=== PATIENT | female | born 1995 | race African-American/Black ===

== ENCOUNTER 2017-09-03 17:26 | Emergency (ER) | payer OTHER ==
[~2017-09-03] VITALS: Ht 149.9 cm; Wt 40.8 kg
[2017-09-03 17:35] VITALS: BP 112/66
[2017-09-03 18:28] LABS: BILIRUBIN,URINE NEGATIVE (NEG); GLUCOSE,URINE NEGATIVE (NEG); NITRITE,URINE NEGATIVE (NEG); PH,URINE 7.5; PROTEIN,URINE NEGATIVE (NEG-TRACE)
[2017-09-03 18:40] LABS: BACTERIA,URINE 0 /HPF (0-FEW); SQUAMOUS EPITHELIAL CELL,UR MOD /LPF; WBC,URINE 20-40 /HPF (0-4)
[2017-09-03 18:41] LABS: TRICHOMONAS,URINE PRESENT
[2017-09-03] MEDS ORDERED: SULF1TAB24 PO (18:59)
--- NOTE | 2017-09-03 18:59 | PHYS DOC ---
Past Medical History Past Medical History: No Pertinent History Past Surgical History: No Surgical History Alcohol Use: None Drug Use: None Adult General Chief Complaint Chief Complaint: PAIN ON URINATION HPI HPI Patient is a 22 year old female who presents with dysuria for 2 days. Patient denies any fever nausea vomiting. Review of Systems Review of Systems Constitutional: Denies fever or chills [] Eyes: Denies change in visual acuity, redness, or eye pain [] HENT: Denies nasal congestion or sore throat [] Respiratory: Denies cough or shortness of breath [] Cardiovascular: No additional information not addressed in HPI [] GI: Denies abdominal pain, nausea, vomiting, bloody stools or diarrhea [] : Dysuria for 2 days. Musculoskeletal: Denies back pain or joint pain [] Integument: Denies rash or skin lesions [] Neurologic: Denies headache, focal weakness or sensory changes [] All other systems were reviewed and found to be within normal limits, except as documented in this note. Current Medications Current Medications Current Medications Medications (Trade) Dose Ordered Sig/Nory Start Time Stop Time Status Last Admin Dose Admin Azithromycin (Zithromax) 1,000 mg 1X ONCE 09/03/17 19:00 09/03/17 19:01 UNV Ceftriaxone Sodium (Rocephin Im) 250 mg 1X ONCE 09/03/17 19:00 09/03/17 19:01 UNV Metronidazole (Flagyl) 2,000 mg 1X ONCE 09/03/17 19:00 09/03/17 19:01 UNV Physical Exam Physical Exam Constitutional: Well developed, well nourished, no acute distress, non-toxic appearance. [] HENT: Normocephalic, atraumatic, bilateral external ears normal, oropharynx moist, no oral exudates, nose normal. [] Eyes: PERRLA, EOMI, conjunctiva normal, no discharge. [] Neck: Normal range of motion, no tenderness, supple, no stridor. [] Cardiovascular:Heart rate regular rhythm, no murmur [] Lungs & Thorax: Bilateral breath sounds clear to auscultation [] Abdomen: Bowel sounds normal, soft, no tenderness, no masses, no pulsatile masses. [] Skin: Warm, dry, no erythema, no rash. [] Back: No tenderness, no CVA tenderness. [] Extremities: No tenderness, no cyanosis, no clubbing, ROM intact, no edema. [] Neurologic: Alert and oriented X 3, normal motor function, normal sensory function, no focal deficits noted. [] Psychologic: Affect normal, judgement normal, mood normal. [] Current Patient Data Vital Signs Vital Signs Date Time Temp Pulse Resp B/P (MAP) Pulse Ox O2 Delivery O2 Flow Rate FiO2 09/03/17 17:35 97.8 96 14 100 Room Air 97.8 Lab Values Laboratory Tests Test 09/03/17 17:43 09/03/17 18:20 POC Urine HCG, Qualitative Hcg negative (Negative) Urine Collection Type Unknown Urine Color Yellow Urine Clarity Clear Urine pH 7.5 Urine Specific [place] 1.020 Urine Protein Negative mg/dL (NEG-TRACE) Urine Glucose (UA) Negative mg/dL (NEG) Urine Ketones (Stick) Negative mg/dL (NEG) Urine Blood Negative (NEG) Urine Nitrite Negative (NEG) Urine Bilirubin Negative (NEG) Urine Urobilinogen Dipstick 1.0 mg/dL (0.2 mg/dL) Urine Leukocyte Esterase Moderate (NEG) Urine RBC 3-5 /HPF (0-2) Urine WBC 20-40 /HPF (0-4) Urine Squamous Epithelial Cells Mod /LPF Urine Bacteria 0 /HPF (0-FEW) Urine Mucus Mod /LPF Urine Trichomonas Present EKG EKG [] Radiology/Procedures Radiology/Procedures [] Course & Med Decision Making Course & Med Decision Making Pertinent Labs and Imaging studies reviewed. (See chart for details) Patient is in the ED with dysuria for 2 days. Negative urine hCG. Urine noted for moderate amount of leukocytes and Trichomonas. Was given Flagyl Rocephin and azithromycin in the ED. Discharged with Bactrim. STD education provided. Follow-up with PCP for health department in 1-2 weeks as [place] Disclaimer Dragon Disclaimer This electronic medical record was generated, in whole or in part, using a voice recognition dictation system. Departure Departure Impression: Primary Impression: Trichomonal vaginitis Additional Impression: Urinary tract infection Disposition: HOME, SELF-CARE Condition: STABLE Referrals: NO PCP (PCP) follow up with your doctor in 1 week Patient Instructions: Trichomoniasis, Urinary Tract Infection Additional Instructions: You were seen with the urinary tract infection as well as Trichomonas- this is a sexually transmitted disease. You were treated in the emergency room. Please contact all your partners, let them know you were treated for Trichomonas and ask them to seek treatment too at the health department. Use protection at all times. Scripts Sulfamethoxazole/Trimethoprim (BACTRIM DS TABLET) 1 Each Tablet 1 TAB PO BID, #10 TAB Prov: PINO SAHA APRN 09/03/17 Problem Qualifiers Additional Impression: Urinary tract infection Urinary tract infection type: site unspecified Hematuria presence: without hematuria Qualified Codes: N39.0 - Urinary tract infection, site not specified PINO SAHA APRN Sep 03, 2017 18:59
[2017-09-03] MEDS ORDERED: AZITHROMYCIN 250 MG TABLET. PO ONE (19:00)
[2017-09-03] MEDS ORDERED: cefTRIAXone IM 250 MG VIAL IM ONE (19:00)
[2017-09-03] MEDS ORDERED: metroNIDAZOLE 500 MG TABLET PO ONE (19:00)
== END 2017-09-03 19:10 | disposition home or self-care (01) ==
LOC: ER 17:26
DX: A59.01 Trichomonal vulvovaginitis (principal); N39.0 Urinary tract infection, site not specified
CPT/HCPCS: 81001; 81025; 87086; 96372; 99284; J0696; Q0144